=== PATIENT | female | born 1940 | race Caucasian/White ===

== ENCOUNTER 2018-06-13 10:09 | Emergency (ER) | payer OTHER ==
[~2018-06-13] VITALS: Ht 152.4 cm; Wt 49.9 kg
[~2018-06-13 10:09] MED LIST: ASPIR 8181 M1 PO; BENICAR40 MG PO; CALCIUM 600 +1 EAC1 PO; CIPRO500 MG PO; CRESTOR10 MG PO; FENOFIBRATE160 MG PO; FLAGYL500 MG PO; GLUCOSAMINE CH1 EA10 PO; HYDROCODONE-AP1 EAC6 PO; LEVAQUIN 250 M250 MG PO; LEVAQUIN 500 M500 M2 PO; MAGOX 400400 MG PO; ONDANSETRON HCL4 M2 PO; POTASSIUM20 PO; Potassium Chloride PO; UNICOMPLEX M TA1 TA1 PO; VITAMIN D1000 UNIT PO
[2018-06-13 10:44] LABS: ABSOLUTE BASOPHILS 0.1 thou/uL (0.0-0.2); ABSOLUTE EOSINOPHILS 0.2 thou/uL (0.0-0.7); ABSOLUTE LYMPHOCYTES 2.2 thou/uL (0.8-5.3); ABSOLUTE MONOCYTES 0.8 thou/uL (0.0-1.2); ABSOLUTE NEUTROPHILS 5.3 thou/uL (1.6-8.1); BASOPHILS 0.7 %; EOSINOPHILS 2.3 %; HEMATOCRIT 43.8 % (37.0-47.0); HEMOGLOBIN 14.5 gm/dL (12.0-15.0); LYMPHOCYTES 26.2 %; MCH 31.3 pg (26.0-34.0); MCHC 33.1 g/dL (28.0-37.0); MCV 94.5 fL (80.0-100.0); MONOCYTES 9.3 %; MPV 8.3 fl. (7.2-11.1); NUCLEATED RBCS 0 /100WBC; PLATELET COUNT* 209 thou/uL (150-400); POLYS 61.5 %; RBC 4.63 mil/uL (4.20-5.00); RDW-CV 13.9 % (10.5-14.5); WBC 8.6 thou/uL (4.0-11.0)
[2018-06-13 10:49] LABS: ANION GAP 9 mmol/L (7-16); BUN 20 mg/dL (7-18); CALCIUM 9.3 mg/dL (8.5-10.1); CHLORIDE 103 mmol/L (98-107); CO2 29 mmol/L (21-32); CREATININE 0.7 mg/dL (0.6-1.3); GLUCOSE 102 mg/dL (70-99); POTASSIUM 3.9 mmol/L (3.5-5.1); SODIUM 141 mmol/L (136-145)
[2018-06-13 11:00] LABS: ALBUMIN 4.6 g/dL (3.4-5.0); ALKALINE PHOSPHATASE 73 U/L (46-116); APTT 23.4 Seconds (25.0-31.3); NT-PRO BRAIN NAT PEPTIDE 1295 pg/mL (<300); PROTIME 10.1 Seconds (9.20-11.50); SGOT 28 U/L (15-37); SGPT 25 U/L (30-65); TOTAL BILIRUBIN 1.5 mg/dL (<0.1-1.0); TOTAL PROTEIN 8.3 g/dL (6.4-8.2); TROPONIN-I LEVEL <0.06 ng/mL (<0.06)
[2018-06-13 11:52] VITALS: BP 146/72
--- NOTE | 2018-06-13 16:37 | EKG ---
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: Ranjith NORWOOD : 1940 Requested By: Trino Willoughby Order Number: [id number] MD: Delio Cruz Measurements Intervals [place] Rate: 83 P: 69 WI: 125 QRS: -22 QRSD: 129 T: 95 QT: 381 QTc: 448 Interpretive Statements Sinus rhythm Atrial premature complexes in couplets Probable left atrial enlargement Left bundle branch block Compared to ECG 09/21/2016 15:05:11 Atrial premature complex(es) now present Sinus tachycardia no longer present Electronically Signed On 06-13-2018 16:37:49 CDT by Delio Cruz [email or web address] <ELECTRONICALLY SIGNED> By: Delio Cruz MD, FAC 06/13/18 1637 1016 1016 Delio Cruz MD, [facility] /EPI
== END 2018-06-13 11:52 | disposition home or self-care (01) ==
LOC: M.ERS 10:09
PROVIDERS: Emergency Medicine Emergency Medical Services
DX: R42 Dizziness and giddiness (principal); I10 Essential (primary) hypertension; E78.5 Hyperlipidemia, unspecified; Z85.3 Personal history of malignant neoplasm of breast; Z88.1 Allergy status to other antibiotic agents; Z88.2 Allergy status to sulfonamides; Z88.6 Allergy status to analgesic agent

== ENCOUNTER → 2018-06-18 | Outpatient (CLI) | payer OTHER | LOC: M.RAD 13:18 | DX: Z12.31 Encounter for screening mammogram for malignant neoplasm of breast (principal); I10 Essential (primary) hypertension; E78.5 Hyperlipidemia, unspecified ==

== ENCOUNTER → 2018-07-29 | Outpatient (CLI) | payer OTHER ==
--- NOTE | 2018-07-29 14:59 | 2DMMODE ---
[place] [address] 2 D/M-MODE ECHOCARDIOGRAM Name: VIOLETA CASAS Room: [facility]#: [id number] Admission: 07/29/18 Attend Phys: Zoey Vazquez, Discharge: Date of : 38 Date of Service: 07/29/18 1459 Report #: [id number] THIS REPORT FOR: //name// APPROVED REPORT Study performed: 07/29/2018 08:43:00 EXAM: Comprehensive 2D, Doppler, and color-flow Echocardiogram Patient Location: Out-Patient Status: routine BSA: 1.46 HR: 81 bpm BP: 160/82 mmHg Other Information Study Quality: Fair Indications Cardiomyopathy Hypertension/HDD 2D Dimensions IVSd: 11.88 (7-11mm) LVOT Diam: 19.64 (18-24mm) LVDd: 42.08 mm PWd: 9.66 (7-11mm) Ascending Ao: 25.75 (22-36mm) LVDs: 30.75 (25-40mm) Aortic Root: 22.81 mm Volumes Left Atrial Volume (Systole) LA ESV Index: 15.80 mL/m2 Aortic Valve AoV Peak Myron.: 1.12 m/s AO Peak Gr.: 5.06 mmHg LVOT Max P.15 mmHg AO Mean Gr.: 2.67 mmHg LVOT Mean P.03 mmHg LVOT Max V: 0.73 m/s AO V2 VTI: 19.57 cm LVOT Mean V: 0.46 m/s NARCISO (VTI): 2.22 cm2 LVOT V1 VTI: 14.36 cm Mitral Valve E/A Ratio: 0.41 MV Decel. Time: 428.89 ms MV E Max Myron.: 0.40 m/[place] [address] 2 D/M-MODE ECHOCARDIOGRAM Name: VIOLETA CASAS Room: [facility]#: [id number] Admission: 07/29/18 Attend Phys: Zoey Vazquez, Discharge: Date of : 38 Date of Service: 07/29/18 1459 Report #: [id number] MV PHT: 124.38 ms MVA (PHT): 1.77 cm2 TDI E/Lateral E': 3.08 E/Medial E': 3.33 Medial E' Myron.: 0.12 m/s Lateral E' Myron.: 0.13 m/s Pulmonary Valve PV Peak Myron.: 0.95 m/s PV Peak Gr.: 3.59 mmHg Tricuspid Valve RAP Estimate: 5.00 mmHg TR Peak Gr.: 16.66 mmHg RVSP: 21.66 mmHg PA Pressure: 21.66 mmHg Left Ventricle The left ventricle is normal size. There is moderate diffuse hypokinesis of LV wall motion. There is normal left ventricular wall thickness. Left ventricular systolic function is mild to moderately decreased. LVEF is 40%. Grade I - abnormal relaxation pattern. Right Ventricle The right ventricle is normal size. The right ventricular systolic function is normal. Atria The left atrium size is normal. The right atrium size is normal. Aortic Valve Mild aortic valve sclerosis. No aortic regurgitation is present. There is no aortic valvular stenosis. Mitral Valve Mild mitral annular calcification. Mild mitral regurgitation. No evidence of mitral valve stenosis. Tricuspid Valve The tricuspid valve is normal in structure. Mild tricuspid regurgitation. Pulmonic Valve The pulmonary valve is normal in structure. [place] [address] 2 D/M-MODE ECHOCARDIOGRAM Name: VIOLETA CASAS Room: [facility]#: [id number] Admission: 07/29/18 Attend Phys: Zoey Vazquez, Discharge: Date of : 38 Date of Service: 07/29/18 1459 Report #: [id number] Great Vessels The aortic root is normal in size. IVC is normal in size and collapses >50% with inspiration. Pericardium There is no pericardial effusion. <Conclusion> The left ventricle is normal size. There is normal left ventricular wall thickness. Left ventricular systolic function is mild to moderately decreased. Grade I - abnormal relaxation pattern. The right ventricle is normal size. The left atrium size is normal. Mild aortic valve sclerosis. No aortic regurgitation is present. There is no aortic valvular stenosis. Mild mitral annular calcification. Mild mitral regurgitation. IVC is normal in size and collapses >50% with inspiration. There is no pericardial effusion. There is moderate diffuse hypokinesis of LV wall motion. LVEF is 40%. <ELECTRONICALLY SIGNED> By: Delio Cruz MD, FACC 07/29/18 1459 1459 1459 Delio Cruz MD, FACC /INF
== END ==
LOC: M.CRD 08:18
DX: I08.1 Rheumatic disorders of both mitral and tricuspid valves (principal); I10 Essential (primary) hypertension; I42.9 Cardiomyopathy, unspecified

== ENCOUNTER → 2018-08-02 | Outpatient (CLI) | payer OTHER ==
[~2018-08-02] MED LIST changes: +CARVEDILOL3.125 MG PO
--- NOTE | 2018-08-12 03:24 | ONC ---
[place] [address] RADIATION ONCOLOGY NOTE Name: YESSENIAVIOLETA Prince Room: [facility]#: [id number] Admission: 08/02/18 Attend Phys: Solis Barajsa MD Discharge: Date of : 38 Report #: [id number] THIS REPORT FOR: //name// CC: Solis Joyce MD DATE OF SERVICE: 08/02/18 Radiation Oncology Followup Note REFERRING PHYSICIANS: Dougie Agee DO; Butch Garay MD; Michael Caro MD [facility]iation [facility]cology phone is [phone] PRIMARY SITE AND HISTOPATHOLOGY: The patient received radiation therapy for a clinical stage IIA, T2 N0 M0 left breast cancer. She received neoadjuvant chemotherapy prior to her radiation therapy. Radiation therapy was completed on 03/13/2017. INTERVAL NOTE: The patient denied having any nipple discharge from the right breast. She denied having any nipple discharge from the left breast. She denied having any upper extremity edema. She denied having any suspicious masses involving the right breast. She denied having any suspicious palpable masses involving the left breast. SOCIAL HISTORY: The patient is retired. Cigarettes: patient does not smoke cigarettes. REVIEW OF SYSTEMS: RESPIRATORY: The patient was not short of breath. Her breathing was stable. MUSCULOSKELETAL: She had good range of motion of her upper extremities. PHYSICAL EXAMINATION: With my nurse, Tiffanie Dykes, present. VITAL SIGNS: the patient weighed 112.2 pounds on 08/02/2018, 114 pounds 07/23/2018 and on 08/02/2018, blood pressure was 119/76; pulse 92, respirations 20, oxygen saturation was 99%. LYMPH NODES: She had no palpable cervical or supraclavicular or axillary lymphadenopathy. HEART: Had a regular rate and rhythm without murmur. LUNGS: were clear to auscultation. BREASTS: Left breast had no suspicious palpable masses. Right breast had no [place] [address] RADIATION ONCOLOGY NOTE Name: VIOLETA CASAS Room: [facility]#: [id number] Admission: 08/02/18 Attend Phys: Solis Barajas MD Discharge: Date of : 38 Report #: [id number] ABDOMEN: Not tender. Spleen was not palpable. Liver was at the costal margin. EXTREMITIES: Had no clubbing, cyanosis or edema. RADIOLOGIC DATA: The patient had a bilateral mammogram on 06/18/2018, which showed benign findings. ASSESSMENT AND PLAN: 1. History of left breast cancer- There is no evidence of breast cancer at this time. The patient has an appointment scheduled with her medical oncologist, Dr. Garay on 10/16/2017. She was given a requisition for a bilateral mammogram in 06/2019. She was asked to schedule a followup appointment to see me afterwards. 2. Hypertension - The patient takes Benicar and that is managed by referring physicians. 3. Hyperlipidemia. The patient takes Crestor and that is managed by her referring physicians. Thank you for allowing me to participate in the care of this patient. <ELECTRONICALLY SIGNED> By: Solis Barajas MD 08/12/18 0324 1213 0143Dlashae Barajas MD /nt
== END ==
LOC: M.RTH 07-29 13:00
DX: I10 Essential (primary) hypertension (principal); E78.5 Hyperlipidemia, unspecified; Z85.3 Personal history of malignant neoplasm of breast

== ENCOUNTER → 2018-08-06 | Outpatient (CLI) | payer OTHER ==
[~2018-08-06] VITALS: Ht 152.4 cm; Wt 50.3 kg
[2018-08-06 08:06] VITALS: BP 169/81
[2018-08-06 08:12] LABS: HEMATOCRIT 42.3 % (37.0-47.0); MCH 31.5 pg (26.0-34.0); MCHC 33.2 g/dL (28.0-37.0); MCV 94.8 fL (80.0-100.0); MPV 8.2 fl. (7.2-11.1); RBC 4.46 mil/uL (4.20-5.00); RDW-CV 13.2 % (10.5-14.5)
[2018-08-06 08:19] LABS: ANION GAP 11 mmol/L (7-16); BUN 25 mg/dL (7-18); CALCIUM 9.2 mg/dL (8.5-10.1); CHLORIDE 105 mmol/L (98-107); CO2 26 mmol/L (21-32); CREATININE 0.8 mg/dL (0.6-1.3); GLUCOSE 106 mg/dL (70-99); POTASSIUM 3.6 mmol/L (3.5-5.1); SODIUM 142 mmol/L (136-145)
[2018-08-06 08:23] LABS: APTT 23.8 Seconds (25.0-31.3); PROTIME 10.4 Seconds (9.20-11.50)
[2018-08-06 08:24] LABS: CHOLESTEROL 144 mg/dL (<200); HDL CHOLESTEROL 53 mg/dL (>40); LDL CHOLESTEROL 76 mg/dL (<100); TC:HDL 2.7 Ratio (Not establshd); TRIGLYCERIDE 78 mg/dL (<150); VLDL 16 mg/dL (<40)
[2018-08-06 08:25] LABS: SERUM ASSESSMENT Clear
--- NOTE | 2018-08-06 10:01 | EKG ---
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: [facility] : 1940 Requested By: Michael Caro Order Number: [id number] Reading MD: Michael Caro Measurements Intervals [place] Rate: 73 P: 80 OR: 131 QRS: -37 QRSD: 124 T: 108 QT: 430 QTc: 474 Interpretive Statements Sinus rhythm Left bundle branch block Compared to ECG 06/13/2018 10:16:33 Atrial premature complex(es) no longer present Electronically Signed On 08-06-2018 10:01:24 CUSTOMER RELATIONS ADVISOR by Michael Caro [email or web address] <ELECTRONICALLY SIGNED> By: Michael Caro MD, FACC 08/06/18 1001 7 7 Michael Caro MD, [facility] /EPI
[2018-08-06 10:11] VITALS: BP 137/58
[2018-08-06 10:30] VITALS: BP 141/73
[2018-08-06 10:45] VITALS: BP 140/89
[2018-08-06 11:00] VITALS: BP 131/69
--- NOTE | 2018-08-07 11:09 | CARD ---
[address] [address] CARDIAC CATH REPORT Name: VIOLETA CASAS Room: [facility]#: [id number] Admission: 08/06/18 Attend Phys: Michael Caro MD Discharge: Date of : 38 Report #: [id number] THIS REPORT FOR: //name// APPROVED REPORT Study performed: 08/06/2018 07:55:50 Patient Details Patient Status: Out-Patient Room #: The patient is a 78 year-old female Event Personnel Michael Caro Cork Insulator Helper, Janki Monroy RN Asian Studies Program Chair, Johanny Kenny Monitor, Luis Manuel Delaney (R) Scrub, Suzie Ng RTR Scrub Procedures Performed Art Access - R radial artery , Selective Right and Left Coronary Angiography, Left Ventriculogram Procedure Narrative The patient was brought electively to the Cardiac Catheterization Laboratory and was prepped and draped in a sterile manner. The right wrist was infiltrated with 2% Lidocaine subcutaneous anesthesia. A Slender Glidesheath sheath was inserted into the right radial artery. Coronary angiography was performed using coronary diagnostic catheters. The right coronary system was accessed and visualized with a DCR: Thornton 4.0 5fr catheter. The left coronary system was accessed and visualized with a DCR: Thornton 4.0 5fr catheter. The left ventricle was accessed and visualized with a PC: Angled Pig 5fr catheter. Left ventricular/Aortic Valve gradient assessed via catheter pullback. Left ventriculogram was performed in SANTIAGO projection. The patient tolerated the procedure well and there were no complications associated with the procedure. Intraoperative Conscious Sedation Sedation start time: 09:29 Case end Time: 09:45 Fentanyl 25 mcg Versed 1 mg Fluoro Time: 3.9 minutes Dose: DAP 09294 cGycm2 385.71 mGy Contrast Type and Amount: Visipaque 75 [place] [address] CARDIAC CATH REPORT Name: VIOLETA CASAS Room: [facility]#: [id number] Admission: 08/06/18 Attend Phys: Michael Caro MD Discharge: Date of : 38 Report #: [id number] The patient's coronary anatomy is right dominant. Diagnostic Cath Left Main normal proximal, 50% mid distal diffuse 30% very tortuous mid body(shep[place] crook) Diagonal 1 medium and normal Circumflex ostial 30% mid 60-65% OM1 small nornmal OM2 small normal Right Coronary normal R PDA normal RPLV small normal Left Ventriculography The left ventricle is normal in size with normal contractility. The left ventricular ejection fraction is estimated to be 60%. There is no mitral insufficiency. Hemodynamics The aortic pressure is 120/60 mmHg with a mean of 87 mmHg. The left ventricular pressure is 129/6 mmHg with a mean of mmHg. The left ventricular end diastolic pressure is 9 mmHg. Conclusion 1. moderate CAD 2. normal LV function Recommendations Aggressive Medical Therapy <ELECTRONICALLY SIGNED> By: Michael Caro MD, FACC 08/07/18 1109 08 1109Michael Caro MD, FACC /INF
== END | disposition home or self-care (01) ==
LOC: M.CL 07:18
PROVIDERS: Internal Medicine Cardiovascular Disease
DX: I25.10 Atherosclerotic heart disease of native coronary artery without angina pectoris (principal); I10 Essential (primary) hypertension; E78.5 Hyperlipidemia, unspecified; D64.9 Anemia, unspecified; Z85.3 Personal history of malignant neoplasm of breast; Z88.1 Allergy status to other antibiotic agents; Z88.2 Allergy status to sulfonamides; Z88.8 Allergy status to other drugs, medicaments and biological substances; Z79.899 Other long term (current) drug therapy; Z98.51 Tubal ligation status; Z90.89 Acquired absence of other organs; Z79.01 Long term (current) use of anticoagulants

== ENCOUNTER → 2018-12-17 | Outpatient (CLI) | payer OTHER ==
--- NOTE | 2018-12-17 10:57 | 2DMMODE ---
[place] [address] 2 D/M-MODE ECHOCARDIOGRAM Name: VIOLETA CASAS Room: [facility]#: [id number] Admission: 12/17/18 Attend Phys: Zoey Vazquez, Discharge: Date of : 38 Date of Service: 12/17/18 1057 Report #: [id number] THIS REPORT FOR: //name// APPROVED REPORT Study performed: 12/17/2018 09:49:37 EXAM: Comprehensive 2D, Doppler, and color-flow Echocardiogram Patient Location: Out-Patient BSA: 1.48 HR: 63 bpm BP: 140/70 mmHg Other Information Study Quality: Fair Indications Cardiomyopathy Hypertension/HDD 2D Dimensions IVSd: 9.45 (7-11mm) LVOT Diam: 19.51 (18-24mm) LVDd: 45.20 mm PWd: 8.25 (7-11mm) Ascending Ao: 29.02 (22-36mm) LVDs: 40.18 (25-40mm) Aortic Root: 23.59 mm Volumes Left Atrial Volume (Systole) LA ESV Index: 19.20 mL/m2 Aortic Valve AoV Peak Myron.: 0.99 m/s AO Peak Gr.: 3.91 mmHg LVOT Max P.58 mmHg AO Mean Gr.: 2.30 mmHg LVOT Mean P.96 mmHg LVOT Max V: 0.63 m/s AO V2 VTI: 20.53 cm LVOT Mean V: 0.47 m/s NARCISO (VTI): 2.08 cm2 LVOT V1 VTI: 14.31 cm Mitral Valve E/A Ratio: 0.58 MV Decel. Time: 215.48 ms MV E Max Myron.: 0.54 m/s MV PHT: 62.49 [place] [address] 2 D/M-MODE ECHOCARDIOGRAM Name: VIOLETA CASAS Room: [facility]#: [id number] Admission: 12/17/18 Attend Phys: Zoey Vazquez, Discharge: Date of : 38 Date of Service: 12/17/18 1057 Report #: [id number] MVA (PHT): 3.52 cm2 TDI E/Lateral E': 18.00 E/Medial E': 13.50 Medial E' Myron.: 0.04 m/s Lateral E' Myron.: 0.03 m/s Pulmonary Valve PV Peak Myron.: 0.76 m/s PV Peak Gr.: 2.30 mmHg Tricuspid Valve RAP Estimate: 5.00 mmHg TR Peak Gr.: 20.80 mmHg RVSP: 25.80 mmHg PA Pressure: 25.80 mmHg Left Ventricle Left ventricle is mildly dilated. There is global hypokinesis of the left ventricle. Paradoxical septal motion consistent with conduction abnormality. Mild to moderate concentric left ventricular hypertrophy. Left ventricular ejection fraction is moderate to severely decreased. LVEF is 25-30%. Grade I - abnormal relaxation pattern. Right Ventricle The right ventricle is normal size. The right ventricular systolic function is normal. Atria The left atrium size is normal. The right atrium size is normal. Aortic Valve The aortic valve is normal in structure. No aortic regurgitation is present. There is no aortic valvular stenosis. Mitral Valve There is mitral annular calcification. Mitral valve leaflets are mildly thickened. Mild mitral regurgitation. No evidence of mitral valve stenosis. Tricuspid Valve The tricuspid valve is normal in structure. Mild tricuspid regurgitation. Pulmonic Valve The pulmonary valve is normal in structure[place] [address] 2 D/M-MODE ECHOCARDIOGRAM Name: VIOLETA CASAS Room: [facility]#: [id number] Admission: 12/17/18 Attend Phys: Zoey Vazquez, Discharge: Date of : 38 Date of Service: 12/17/18 1057 Report #: [id number] regurgitation. Great Vessels The aortic root is normal in size. IVC is normal in size and collapses >50% with inspiration. Pericardium There is no pericardial effusion. <Conclusion> Left ventricle is mildly dilated. There is global hypokinesis of the left ventricle. Paradoxical septal motion consistent with conduction abnormality. LVEF is 25-30%. There is no aortic valvular stenosis. No aortic regurgitation is present. Mild mitral regurgitation. Grade I - abnormal relaxation pattern. Mild to moderate concentric left ventricular hypertrophy. <ELECTRONICALLY SIGNED> By: Michael Caro MD, FACC 12/17/18 1057 105 105 Michael Caro MD, FACC /INF
== END ==
LOC: M.CRD 09:45
DX: I08.1 Rheumatic disorders of both mitral and tricuspid valves (principal); I42.0 Dilated cardiomyopathy; I10 Essential (primary) hypertension; E78.5 Hyperlipidemia, unspecified; Z88.8 Allergy status to other drugs, medicaments and biological substances; Z88.2 Allergy status to sulfonamides

== ENCOUNTER → 2019-02-13 | Outpatient (CLI) | payer OTHER | LOC: M.MRI 10:50 | DX: I67.82 Cerebral ischemia (principal); G93.89 Other specified disorders of brain; E78.5 Hyperlipidemia, unspecified; I10 Essential (primary) hypertension; Z79.899 Other long term (current) drug therapy ==

== ENCOUNTER → 2019-05-21 | Outpatient (CLI) | payer OTHER ==
--- NOTE | 2019-05-21 14:23 | 2DMMODE ---
[facility] [address] [place] [address] 2 D/M-MODE ECHOCARDIOGRAM Name: VIOLETA CASAS ABIGAIL Room: [facility]#: [id number] Admission: 05/21/19 Attend Phys: Jaison Merrill MD Discharge: Date of : 38 Date of Service: 05/21/19 1423 Report #: [id number] THIS REPORT FOR: //name// APPROVED REPORT Study performed: 05/21/2019 12:54:54 EXAM: Limited 2D Echocardiogram Patient Location: Out-Patient BSA: 1.49 HR: 72 bpm BP: 140/70 mmHg Other Information Study Quality: Fair Indications Cardiomyopathy 2D Dimensions IVSd: 11.48 (7-11mm) LVDd: 43.48 mm PWd: 9.05 (7-11mm) LVDs: 28.11 (25-40mm) Aortic Root: 20.60 mm Left Ventricle The left ventricle is normal size. Borderline concentric left ventricular hypertrophy. Left ventricular systolic function is mildly decreased. LVEF is 45%. Aortic Valve Mild aortic valve sclerosis. Mitral Valve The mitral valve is normal in structure. Tricuspid Valve The tricuspid valve is normal in structure. Great Vessels IVC is normal in size and collapses >50% with inspiration. Pericardium [place] [address] 2 D/M-MODE ECHOCARDIOGRAM Name: VIOLETA CASAS ABIGAIL Room: [facility]#: [id number] Admission: 05/21/19 Attend Phys: Jaison Merrill MD Discharge: Date of : 38 Date of Service: 05/21/19 142 Report #: [id number] There is no pericardial effusion. <Conclusion> The left ventricle is normal size. Borderline concentric left ventricular hypertrophy. Left ventricular systolic function is mildly decreased. LVEF is 45%. Mild aortic valve sclerosis. The mitral valve is normal in structure. There is no pericardial effusion. IVC is normal in size and collapses >50% with inspiration. <ELECTRONICALLY SIGNED> By: Delio Cruz MD, [facility] 05/21/19 142 22 22 Delio Cruz MD, FACC /INF
== END ==
LOC: M.CRD 12:41
DX: I35.8 Other nonrheumatic aortic valve disorders (principal); I42.0 Dilated cardiomyopathy; I44.7 Left bundle-branch block, unspecified; I10 Essential (primary) hypertension

== ENCOUNTER → 2019-06-19 | Outpatient (CLI) | payer OTHER | LOC: M.ULTRA 12:40 | DX: I65.23 Occlusion and stenosis of bilateral carotid arteries (principal); R92.8 Other abnormal and inconclusive findings on diagnostic imaging of breast; Z85.3 Personal history of malignant neoplasm of breast ==

== ENCOUNTER → 2019-07-25 | Outpatient (CLI) | payer OTHER ==
--- NOTE | ~2019-07-25 | ONC ---
[address] [address] RADIATION ONCOLOGY NOTE Name: VIOLETA CASAS Room: [facility].#: [id number] Admission: 07/25/19 Attend Phys: Solis Barajas MD Discharge: Date of : 38 Report #: [id number] THIS REPORT FOR: //name// CC: Solis Agee DATE OF SERVICE: 07/25/2019 REFERRING PHYSICIANS: Dougie Agee DO, Brian Osgood, MD and Dr. Merrill. [place] [facility] phone is [phone]. PRIMARY SITE AND HISTOPATHOLOGY: The patient received radiation therapy for a clinical stage IIA, T2 N0 M0 left breast cancer. She received neoadjuvant chemotherapy prior to radiation therapy. Radiation therapy was completed on 03/13/2017. INTERVAL NOTE: The patient denied having any nipple discharge from the right breast. She denied having any nipple discharge from the left breast. She denied having any upper extremity edema. She denied having any suspicious masses involving the right breast. She denied having any suspicious palpable masses involving the left breast. SOCIAL HISTORY: The patient is retired. Cigarettes, the patient does not smoke cigarettes. REVIEW OF SYSTEMS: RESPIRATORY: The patient was not short of breath. Her breathing was stable. MUSCULOSKELETAL: She had good range of motion of her upper extremities. PHYSICAL EXAMINATION: With my nurse, Tiffanie Dykes, present: VITAL SIGNS: The patient weighed 118 pounds on 07/25/2019, 112.2 pounds on 08/02/2018 and on 07/25/2019, blood pressure 136/68, pulse 83, oxygen saturation 96%, respirations 18. LYMPH NODES: She had no palpable cervical or supraclavicular lymphadenopathy. HEART: Had a regular rate and rhythm without murmur. LUNGS: Clear to auscultation. BREASTS: Left breast had no suspicious palpable masses. Right breast had no suspicious palpable masses. ABDOMEN: Nontender. Spleen is not palpable. Liver was at the costal margin. EXTREMITIES: Had no clubbing, cyanosis or edema. RADIOLOGIC DATA: Bilateral mammogram from 06/19/2019 showed benign findings. ASSESSMENT AND PLAN: 1. History of left breast cancer. There [place] [address] RADIATION ONCOLOGY NOTE Name: RALPH CASASYCE ABIGAIL Room: [facility]#: [id number] Admission: 07/25/19 Attend Phys: Solis Barajas MD Discharge: Date of : 38 Report #: [id number] this time. A bilateral mammogram was ordered in 1 year. She was asked to schedule a followup appointment to see me afterwards. She follows up with her medical oncologist, Dr. Garay about every 6 months. 2. Hypertension. The patient takes Benicar that is managed by referring physicians. 3. Hyperlipidemia. The patient takes Crestor that is managed by her referring physicians. Thank you for allowing me to participate in the care of this patient. By: 1219 1248Solis Barajas MD /alba
== END ==
LOC: M.RTH 04:54
DX: Z08 Encounter for follow-up examination after completed treatment for malignant neoplasm (principal); I10 Essential (primary) hypertension; E78.5 Hyperlipidemia, unspecified; Z85.3 Personal history of malignant neoplasm of breast

== ENCOUNTER → 2019-11-13 | Outpatient (CLI) | payer OTHER | LOC: M.RAD 13:21 | DX: M81.0 Age-related osteoporosis without current pathological fracture (principal); Z78.0 Asymptomatic menopausal state ==

== ENCOUNTER → 2020-06-25 | Outpatient (CLI) | payer OTHER | LOC: M.RAD 09:14 | PROVIDERS: ATTEND Radiology Radiation Oncology | DX: Z12.31 Encounter for screening mammogram for malignant neoplasm of breast (principal); N64.89 Other specified disorders of breast ==

== ENCOUNTER → 2020-07-01 | Outpatient (CLI) | payer OTHER | LOC: M.RAD 09:53 | PROVIDERS: ATTEND Radiology Radiation Oncology | DX: R92.2 Inconclusive mammogram (principal) ==

== ENCOUNTER → 2020-07-30 | Outpatient (CLI) | payer OTHER ==
--- NOTE | 2020-07-31 23:47 | ONC ---
[address] [address] RADIATION ONCOLOGY NOTE Name: YESSENIAVIOLETA ABIGAIL Room: [facility]#: [id number] Admission: 07/30/20 Attend Phys: Solis Barajas MD Discharge: Date of : 38 Report #: [id number] THIS REPORT FOR: //name// CC: Solis Merrill DATE OF SERVICE: 07/30/2020 RADIATION ONCOLOGY FOLLOWUP NOTE REFERRING PHYSICIANS: Dr. Dougie Agee; Butch Garay MD; and Dr. Merrill LOCATION: [facility]. Phone is [phone]. PRIMARY SITE AND HISTOPATHOLOGY: The patient received radiation therapy for a clinical stage IIA, T2N0M0, left breast cancer. She received neoadjuvant chemotherapy prior to radiation therapy. Radiation therapy was completed on 03/13/2017. INTERVAL NOTE: The patient denied having any nipple discharge from the right breast. She denied having any nipple discharge from the left breast. She denied having any upper extremity edema. She denied having any suspicious palpable masses involving the right breast. She denied having any suspicious palpable masses involving the left breast. SOCIAL HISTORY: The patient is retired. Cigarettes: The patient does not smoke cigarettes. REVIEW OF SYSTEMS: RESPIRATORY: The patient was not short of breath. Her breathing was stable. MUSCULOSKELETAL: She has good range of motion of her upper extremities. PHYSICAL EXAMINATION: With my nurse, Tiffanie Dykes, present: VITAL SIGNS: The patient weighed 113.4 pounds on 07/30/2020 and 118 pounds on 07/25/2019. On 07/30/2020 blood pressure was 128/55, pulse 68, oxygen saturation was 97%, temperature was 98.3 degrees Fahrenheit, respirations 20. LYMPH NODES: She had no palpable cervical or supraclavicular or axillary lymphadenopathy. HEART: Had a regular rate and rhythm without murmur. LUNGS: were clear to auscultation. BREASTS: Left breast had no suspicious palpable masses. Right breast had no suspicious palpable masses. ABDOMEN: Not tender. Spleen was not palpable. Liver was at the costal margin. EXTREMITIES: Had no clubbing, [place] [address] RADIATION ONCOLOGY NOTE Name: VIOLETA CASAS Room: [facility]#: [id number] Admission: 07/30/20 Attend Phys: Solis Barajas MD Discharge: Date of : 38 Report #: [id number] RADIOLOGIC DATA: The patient had a mammogram and additional imaging on 07/01/2020. After all was complete, they found benign findings and annual screening mammogram was recommended. ASSESSMENT AND PLAN: 1. History of left breast cancer- There is no evidence of breast cancer at this time. A bilateral mammogram was ordered in about 1 year and she was asked to schedule a follow up appointment to see me afterwards. She indicates she still sees her medical oncologist, Dr. Garay about every 6 months. 2. Hypertension- The patient takes Benicar and that is managed by her referring physicians. 3. Hyperlipidemia- The patient takes Crestor and that is managed by her referring physicians. Her medications include Crestor, Benicar, Coreg and she was started on gabapentin for neuropathy which she said was related to her being prediabetic and knows to treat neuropathy. Thank you for allowing me to participate in the care of this patient. <ELECTRONICALLY SIGNED> By: Solis Barajas MD 07/31/20 2347 1212 1238Dafabricio Barajas MD /nt
== END ==
LOC: M.RTH 11:03
PROVIDERS: ATTEND Radiology Radiation Oncology
DX: Z08 Encounter for follow-up examination after completed treatment for malignant neoplasm (principal); I10 Essential (primary) hypertension; E78.5 Hyperlipidemia, unspecified; Z85.9 Personal history of malignant neoplasm, unspecified; Z92.3 Personal history of irradiation

== ENCOUNTER → 2021-05-30 | Outpatient (CLI) | payer OTHER ==
--- NOTE | 2021-05-30 13:15 | 2DMMODE ---
[place] [address] 2 D/M-MODE ECHOCARDIOGRAM Name: VIOLETA CASAS ABIGAIL Room: [facility]#: [id number] Admission: 05/30/21 Attend Phys: Skye Gold RN Discharge: Date of : 38 Date of Service: 05/30/21 1315 Report #: [id number] THIS REPORT FOR: cc: Dougie Agee,Dougie Strange,Jaison Scott MD [facility] ~ APPROVED REPORT Study performed: 05/30/2021 10:42:42 EXAM: Comprehensive 2D, Doppler, and color-flow Echocardiogram Patient Location: Out-Patient BSA: 1.48 HR: 73 bpm BP: 120/80 mmHg Other Information Study Quality: Good Indications Cardiomyopathy 2D Dimensions IVSd: 10.40 (7-11mm) LVOT Diam: 19.24 (18-24mm) LVDd: 43.73 mm PWd: 10.12 (7-11mm) Ascending Ao: 26.91 (22-36mm) LVDs: 28.97 (25-40mm) Aortic Root: 23.92 mm Volumes Left Atrial Volume (Systole) LA ESV Index: 14.30 mL/m2 Aortic Valve AoV Peak Myron.: 1.16 m/s AO Peak Gr.: 5.34 mmHg LVOT Max P.86 mmHg AO Mean Gr.: 2.96 mmHg LVOT Mean P.39 mmHg LVOT Max V: 0.85 m/s AO V2 VTI: 24.46 cm LVOT Mean V: 0.54 m/s NARCISO (VTI): 2.32 cm2 LVOT V1 VTI: 19.56 cm Mitral Valve E/A Ratio: 0.55 [place] [address] 2 D/M-MODE ECHOCARDIOGRAM Name: VIOLETA CASAS ABIGAIL Room: [facility]#: [id number] Admission: 05/30/21 Attend Phys: Skye Gold RN Discharge: Date of : 38 Date of Service: 05/30/21 1315 Report #: [id number] MV Decel. Time: 219.63 ms MV E Max Myron.: 0.40 m/s MV PHT: 63.69 ms MVA (PHT): 3.45 cm2 TDI E/Lateral E': 6.67 E/Medial E': 3.33 Medial E' Myron.: 0.12 m/s Lateral E' Myron.: 0.06 m/s Pulmonary Valve PV Peak Myron.: 0.82 m/s PV Peak Gr.: 2.70 mmHg Tricuspid Valve RAP Estimate: 5.00 mmHg TR Peak Gr.: 17.81 mmHg RVSP: 22.81 mmHg PA Pressure: 22.81 mmHg Left Ventricle The left ventricle is normal size. There is normal LV segmental wall motion. There is normal left ventricular wall thickness. Left ventricular systolic function is borderline. LVEF is 50-55%. Grade I - abnormal relaxation pattern. Right Ventricle The right ventricle is normal size. The right ventricular systolic function is normal. Atria The left atrium size is normal. The right atrium size is normal. Aortic Valve The aortic valve is normal in structure. Trace to mild aortic regurgitation. There is no aortic valvular stenosis. Mitral Valve The mitral valve is normal in structure. Mild mitral regurgitation. No evidence of mitral valve stenosis. Tricuspid Valve The tricuspid valve is normal in structure. Mild tricuspid regurgitation. Pulmonic Valve The pulmonary valve is normal in structure[place] [address] 2 D/M-MODE ECHOCARDIOGRAM Name: VIOLETA CASAS ABIGAIL Room: [facility]#: [id number] Admission: 05/30/21 Attend Phys: Skye Gold RN Discharge: Date of : 38 Date of Service: 05/30/21 1315 Report #: [id number] regurgitation. Great Vessels The aortic root is normal in size. IVC is normal in size and collapses >50% with inspiration. Pericardium There is no pericardial effusion. <Conclusion> LVEF is 50-55%. Trace to mild aortic regurgitation. Mild mitral regurgitation. <ELECTRONICALLY SIGNED> By: Jaison Merrill MD, [facility] 05/30/211314 14 14 Jaison Merrill MD, [facility] /INF
== END ==
LOC: M.CRD 05-24 13:00
PROVIDERS: ATTEND Registered Nurse
DX: I08.3 Combined rheumatic disorders of mitral, aortic and tricuspid valves (principal); I42.8 Other cardiomyopathies

== ENCOUNTER → 2021-07-01 | Outpatient (CLI) | payer OTHER | LOC: M.RAD 09:58 | PROVIDERS: ATTEND Radiology Radiation Oncology | DX: Z12.31 Encounter for screening mammogram for malignant neoplasm of breast (principal) ==